=== PATIENT | female | born 1965 | race Two or more races ===

== ENCOUNTER 2023-02-27 13:50 | Emergency (ER) | payer OTHER ==
[~2023-02-27] VITALS: Ht 170.2 cm; Wt 94.0 kg
[2023-02-27 14:30] VITALS: BP 157/94
[2023-02-27] MEDS ORDERED: IPRATROPIUM BROM 0.5 MG/2.5ML INH SOL NEB ONE ×2 (14:30→16:00)
[2023-02-27] MEDS ORDERED: methylPREDNISolone SOD SUCC 125 MG/2 ML VL IM ONE (14:30)
[2023-02-27] MEDS ORDERED: ALBUTEROL SULF 2.5 MG/0.5ML(0.5%) NEB SOLN NEB ONE ×2 (14:30→16:00)
[2023-02-27] MEDS ORDERED: PRED20TA2 PO (15:39)
[2023-02-27] MEDS ORDERED: PROM1SOL4 PO (17:15)
[2023-02-27] MEDS ORDERED: AZIT500T66 PO (17:15)
== END 2023-02-27 17:22 | disposition home or self-care (01) ==
LOC: ER 13:50
DX: J45.901 Unspecified asthma with (acute) exacerbation (principal); J20.9 Acute bronchitis, unspecified
CPT/HCPCS: 71046; 94640; 96372; 99283; J2930; J7644